=== PATIENT | female | born 1935 | race Caucasian/White ===

== ENCOUNTER 2021-05-16 15:00 | Outpatient (RCR) | payer MEDICARE, SELFPAY ==
[2021-02-15 15:46] VITALS: BP 124/60; PULSE 92; TEMP 35.8; O2SAT 94
[2021-02-15 16:11] VITALS: PULSE 81
== END 2021-05-16 16:30 | disposition home or self-care (01) ==
LOC: ANHCPREHAB 15:00
PROVIDERS: Visit Provider Hospitalist
DX: Z95.5 Presence of coronary angioplasty implant and graft (principal)
CPT/HCPCS: 93798

== ENCOUNTER 2022-11-06 14:24 | Emergency (ER) | payer MEDICARE, SELFPAY ==
--- NOTE | 2022-11-06 14:26 | ED.EYEPROB ---
HPI - Eye Problem General Chief complaint: Eye Problems Stated complaint: Eyes Irritation Time Seen by Provider: 11/06/22 14:48 Source: patient, RN notes reviewed and old records reviewed Mode of arrival: ambulatory Limitations: no limitations History of Present Illness HPI Narrative: 87-year-old female presents to the [facility] with red eyes, drainage as well as being crusted over this morning. Had taking care of her grand babies yesterday. Describes him as being very itchy. Denies any blurry vision or change in vision. Symptoms started this morning Related Data Home Medications Medication Instructions Recorded Confirmed acetaminophen 325 mg tablet 325 mg PO ONCE PRN Mild Pain 02/15/21 02/15/21 (Tylenol) (Scale Score 1-4) alprazolam 0.25 mg tablet (Xanax) 0.25 mg PO PRN 02/15/21 02/15/21 ascorbic acid (vitamin C) 100 mg 100 mg PO DAILY 02/15/21 02/15/21 tablet aspirin 81 mg tablet 81 mg PO DAILY 02/15/21 02/15/21 atorvastatin 80 mg tablet 80 mg PO HS 02/15/21 02/15/21 clopidogrel 75 mg tablet 75 mg PO DAILY 02/15/21 02/15/21 ergocalciferol (vitamin D2) 50 mcg 50 mcg PO DAILY 02/15/21 02/15/21 (2,000 unit) capsule hydrochlorothiazide 12.5 mg tablet 12.5 mg PO DAILY 02/15/21 02/15/21 levothyroxine 100 mcg tablet 100 mcg PO DAILY 02/15/21 02/15/21 metoprolol succinate 25 mg 25 mg PO DAILY 02/15/21 02/15/21 tablet,extended release 24 hr olmesartan 20 mg tablet 20 mg PO DAILY 02/15/21 02/15/21 vitamin E 200 unit capsule 100 unit PO DAILY 02/15/21 02/15/21 vitamins A,C,X-hpty-neaier 2,148 2 tablet PO BID 02/15/21 02/15/21 mcg-113 mg-45 mg-17.4 mg tablet (PreserVision AREDS) Natural Co-Q10 11/06/22 PreserVision AREDS 11/06/22 evolocumab 140 mg/mL subcutaneous mg subcut 11/06/22 pen injector (Thiago Mejia) nitroglycerin 11/06/22 Allergies Allergy/AdvReac Type Severity Reaction Status Date / Time meperidine Allergy Mild Unknown Unverified 11/06/22 14:32 Penicillins Allergy Mild Unknown Unverified 11/06/22 14:32 Review of Systems Review of Systems: All systems reviewed & are unremarkable except as noted in HPI and below Constitutional: Constitutional: Reports no additional constitutional complaints Eyes: Eyes: Reports as per HPI, Denies change in vision, Reports eye discharge, Reports irritation, Reports itchy eyes and Denies photophobia ENT: Reports system reviewed and no additional complaints, except as documented Cardiovascular: Cardiovascular: Reports no additional cardiovascular complaints, Denies chest pain and Denies dyspnea Respiratory: Respiratory: Reports no additional respiratory complaints, Denies chest congestion, Denies cough and Denies dyspnea Gastrointestinal: Gastrointestinal: Reports no additional gastrointestinal complaints, Denies abdominal pain, Denies nausea and Denies vomiting Musculoskeletal: Musculoskeletal: Reports no additional musculoskeletal complaints Integumentary/Breasts: Skin/Breast: Reports system reviewed and no additional complaints, except as docu Neurologic: Reports system reviewed and no additional complaints, except as documented Psychiatric: Psychiatric: Reports no additional psychiatric complaints Allergic/Immunologic: Allergic/Immunologic: Reports no additional allergic/immunologic complaints [facility] Past Medical History Medical History (Updated 11/07/22 @ 08:03 by Marissa Cole APRN) Anxiety High cholesterol History of high blood pressure Hypothyroid Vitamin D deficiency Family History Family History (Updated 02/15/21 @ 15:55 by Marlin Mchugh RN) Grandparent Acute myocardial infarction Sibling Diabetes mellitus Grandparent Cerebrovascular accident Father Colon cancer Sibling Heart disease Social History Social History Smoking status: Never smoker Second hand tobacco smoke exposure: No Gender identity (if verbalized by the patient): Female Comments At th
[2022-11-06 14:33] VITALS: BP 154/72; PULSE 85; RESP 16; TEMP 36.8; O2SAT 96
== END 2022-11-06 14:58 | disposition home or self-care (01) ==
PROVIDERS: Emergency Provider Nurse Practitioner
DX: H10.9 Unspecified conjunctivitis (principal); E03.9 Hypothyroidism, unspecified
CPT/HCPCS: 99213; G0463

== ENCOUNTER 2023-03-06 13:20 | Emergency (ER) | payer MEDICARE, SELFPAY ==
--- NOTE | ~2023-03-06 | XR_ITS ---
EXAMINATION: XR chest 2V 03/06/2023 13:58 INDICATION: Cough and shortness of breath PROCEDURE: 2 view chest COMPARISON: No prior studies for comparison. FINDINGS: The lungs are clear. The cardiomediastinal silhouette is within normal limits. There are no pleural effusions. There is no pneumothorax suspected. There is atherosclerosis of the aorta. Mo derate thoracic spondylosis with accentuated kyphosis. IMPRESSION: 1: NO ACUTE CARDIOPULMONARY DISEASE. Reviewed, dictated and finalized at location L.
[2023-03-06 13:25] VITALS: BP 167/70; PULSE 82; RESP 16; TEMP 36.6; O2SAT 97
--- NOTE | 2023-03-06 13:29 | ED.URI ---
HPI - URI/Sore Throat General Chief Complaint: Upper Respiratory Infection Stated Complaint: Sinus Time Seen by Provider: 03/06/23 13:29 Source: patient, RN notes reviewed and old records reviewed Mode of arrival: ambulatory Limitations: no limitations History of Present Illness HPI Narrative: 88-year-old female presents to the [facility] with ?I am ill. ? Patient not a very good historian when it comes to signs and symptoms. Patient reports that she was cleaning on Sunday, 4 days ago became suddenly short of breath. States that she used her inhaler. Reports that she was extremely ill on Sunday and Sunday ?could not get out of bed. On Sunday started feeling better but could not leave the house. States today she is feeling better was able to get out of the house. Still feels very tired and ill. Has had cough Denies chest pain or abdominal pain. Denies fevers. Patient states ?this is all my allergies. ? Use to get a Symbicort, azithromycin and albuterol from her doctor Related Data Home Medications Medication Instructions Recorded Confirmed acetaminophen 325 mg tablet 325 mg PO ONCE PRN Mild Pain 02/15/21 03/06/23 (Tylenol) (Scale Score 1-4) ascorbic acid (vitamin C) 100 mg 100 mg PO DAILY 02/15/21 03/06/23 tablet aspirin 81 mg tablet 81 mg PO DAILY 02/15/21 03/06/23 ergocalciferol (vitamin D2) 50 mcg 50 mcg PO DAILY 02/15/21 03/06/23 (2,000 unit) capsule hydrochlorothiazide 12.5 mg tablet 12.5 mg PO DAILY 02/15/21 03/06/23 levothyroxine 100 mcg tablet 100 mcg PO DAILY 02/15/21 03/06/23 metoprolol succinate 25 mg 25 mg PO DAILY 02/15/21 03/06/23 tablet,extended release 24 hr olmesartan 20 mg tablet 20 mg PO DAILY 02/15/21 03/06/23 vitamin E 200 unit capsule 100 unit PO DAILY 02/15/21 03/06/23 vitamins A,C,D-cbmx-tlmqim 2,148 2 tablet PO BID 02/15/21 03/06/23 mcg-113 mg-45 mg-17.4 mg tablet (PreserVision AREDS) Natural Co-Q10 100 mg DIRECTED 11/06/22 03/06/23 PreserVision AREDS 2 cap DIRECTED 11/06/22 03/06/23 nitroglycerin 0.4 mg DIRECTED 11/06/22 03/06/23 Allergies Allergy/AdvReac Type Severity Reaction Status Date / Time diazepam Allergy Mild Unknown Verified 03/06/23 13:50 meperidine Allergy Mild Unknown Unverified 11/06/22 14:32 Penicillins Allergy Mild Unknown Unverified 11/06/22 14:32 atorvastatin AdvReac Intermediate Muscle Pain Verified 03/06/23 13:49 prednisone AdvReac Mild Other Verified 03/06/23 13:49 Review of Systems Review of Systems: All systems reviewed & are unremarkable except as noted in HPI and below Constitutional: Constitutional: Reports as per HPI, Reports body ache(s) and Reports fatigue Eyes: Eyes: Reports no additional eye complaints ENT: Reports system reviewed and no additional complaints, except as documented Cardiovascular: Cardiovascular: Reports no additional cardiovascular complaints, Denies chest pain and Denies dyspnea Respiratory: Respiratory: Reports as per HPI, Denies chest congestion, Reports cough and Denies dyspnea Gastrointestinal: Gastrointestinal: Reports no additional gastrointestinal complaints, Denies abdominal pain, Denies nausea and Denies vomiting Musculoskeletal: Musculoskeletal: Reports no additional musculoskeletal complaints Integumentary/Breasts: Skin/Breast: Reports system reviewed and no additional complaints, except as docu Neurologic: Reports system reviewed and no additional complaints, except as documented Psychiatric: Psychiatric: Reports no additional psychiatric complaints Allergic/Immunologic: Allergic/Immunologic: Reports no additional allergic/immunologic complaints [facility] Past Medical History Medical History Anxiety High cholesterol History of high blood pressure Hypothyroid Vitamin D deficiency Family History Family History Grandparent Acute myocardial infarction Sibling Diabetes mellitus Grandparent
--- NOTE | 2023-03-06 13:58 | ECG_ITS ---
Measurements Intervals [place] Rate: 78 P: 28 VA: 170 QRS: -12 QRSD: 102 T: 19 QT: 366 QTc: 417 Interpretive Statements SINUS RHYTHM DELAYED PRECORDIAL R/S TRANSITION BORDERLINE ECG NO PREVIOUS ECG AVAILABLE FOR COMPARISON Electronically Signed On 03-06-2023 18:24:48 CDT by Greg Workman D.O.
== END 2023-03-06 14:22 | disposition home or self-care (01) ==
PROVIDERS: Emergency Provider Nurse Practitioner; PCP Family Medicine
DX: J40 Bronchitis, not specified as acute or chronic (principal); E78.00 Pure hypercholesterolemia, unspecified; E03.9 Hypothyroidism, unspecified; I10 Essential (primary) hypertension; E55.9 Vitamin D deficiency, unspecified; Z79.82 Long term (current) use of aspirin; I25.10 Atherosclerotic heart disease of native coronary artery without angina pectoris; Z95.5 Presence of coronary angioplasty implant and graft; I25.2 Old myocardial infarction; M19.90 Unspecified osteoarthritis, unspecified site; Z96.653 Presence of artificial knee joint, bilateral; H35.30 Unspecified macular degeneration
CPT/HCPCS: 71046; 93005; 99213; G0463

== ENCOUNTER 2024-03-20 16:06 | Emergency (ER) | payer MEDICARE, SELFPAY ==
--- NOTE | 2024-03-20 16:14 | ED.FEMALEGU ---
HPI - Female Genitourinary General Chief complaint: Urogenital-Female Stated complaint: urinary issue Time Seen by Provider: 03/20/24 16:14 Source: patient Mode of arrival: ambulatory Limitations: no limitations History of Present Illness HPI Narrative: Patient is a 89-year-old female that presents with frequency, urgency and burning with urination since Sunday. Denies history of UTI. Denies any abdominal pain or low back pain. Denies any fever, chills, nausea, vomiting, diarrhea. MD elicited complaint: dysuria Related Data Home Medications Medication Instructions Recorded Confirmed acetaminophen 325 mg tablet 325 mg PO ONCE PRN Mild Pain 02/15/21 03/20/24 (Tylenol) (Scale Score 1-4) ascorbic acid (vitamin C) 100 mg 100 mg PO DAILY 02/15/21 03/20/24 tablet aspirin 81 mg tablet 81 mg PO DAILY 02/15/21 03/20/24 ergocalciferol (vitamin D2) 50 mcg 50 mcg PO DAILY 02/15/21 03/20/24 (2,000 unit) capsule hydrochlorothiazide 12.5 mg tablet 12.5 mg PO DAILY 02/15/21 03/20/24 levothyroxine 100 mcg tablet 100 mcg PO DAILY 02/15/21 03/20/24 metoprolol succinate 25 mg 25 mg PO DAILY 02/15/21 03/20/24 tablet,extended release 24 hr olmesartan 20 mg tablet 20 mg PO DAILY 02/15/21 03/20/24 vitamin E 200 unit capsule 100 unit PO DAILY 02/15/21 03/20/24 vitamins A,C,O-iptn-ougkpi 2,148 2 tablet PO BID 02/15/21 03/20/24 mcg-113 mg-45 mg-17.4 mg tablet (PreserVision AREDS) Natural Co-Q10 100 mg DIRECTED 11/06/22 03/20/24 PreserVision AREDS 2 cap DIRECTED 11/06/22 03/20/24 nitroglycerin 0.4 mg DIRECTED 11/06/22 03/20/24 Allergies Allergy/AdvReac Type Severity Reaction Status Date / Time diazepam Allergy Mild Unknown Verified 03/06/23 13:50 meperidine Allergy Mild Unknown Unverified 11/06/22 14:32 Penicillins Allergy Mild Unknown Unverified 11/06/22 14:32 atorvastatin AdvReac Intermediate Muscle Pain Verified 03/06/23 13:49 prednisone AdvReac Mild Other Verified 03/06/23 13:49 Review of Systems Review of Systems: All systems reviewed & are unremarkable except as noted in HPI and below Constitutional: Constitutional: Denies chills, Denies fever(s), Denies headache(s), Denies malaise and Denies weakness Eyes: Eyes: Denies change in vision, Denies eye discharge and Denies irritation ENT: Denies otalgia, Denies headache(s), Denies nasal congestion, Denies nasal discharge, Denies sinus pain and Denies sore throat Cardiovascular: Cardiovascular: Denies chest pain, Denies edema, Denies palpitations and Denies dyspnea Respiratory: Respiratory: Denies cough and Denies dyspnea Gastrointestinal: Gastrointestinal: Denies abdominal pain, Denies diarrhea, Denies nausea and Denies vomiting Genitourinary: Genitourinary: Denies hematuria, Reports nocturia, Reports dysuria, Denies flank pain and Reports urinary urgency Musculoskeletal: Musculoskeletal: Denies back pain and Denies numbness Integumentary/Breasts: Skin/Breast: Denies pruritus and Denies rash Neurologic: Denies headache(s), Denies numbness and Denies weakness Psychiatric: Psychiatric: Reports no additional psychiatric complaints Endocrine: Endocrine: Denies palpitations PMFSH Past Medical History Medical History Anxiety High cholesterol History of high blood pressure Hypothyroid Vitamin D deficiency Family History Family History Grandparent Acute myocardial infarction Sibling Diabetes mellitus Grandparent Cerebrovascular accident Father Colon cancer Sibling Heart disease Social History Social History Smoking status: Never smoker Second hand tobacco smoke exposure: No Gender identity (if verbalized by the patient): Female Comments At time of signature, agree with nursing past medical, surgical, social and family history. There is no relevant family history pertinent to
[2024-03-20 16:24] VITALS: BP 172/91; PULSE 68; RESP 12; TEMP 36.4; O2SAT 96
== END 2024-03-20 17:04 | disposition home or self-care (01) ==
PROVIDERS: Emergency Provider Nurse Practitioner Family; PCP Family Medicine
DX: N30.00 Acute cystitis without hematuria (principal); B96.20 Unspecified Escherichia coli [E. coli] as the cause of diseases classified elsewhere; E78.00 Pure hypercholesterolemia, unspecified; I10 Essential (primary) hypertension; E03.9 Hypothyroidism, unspecified; E55.9 Vitamin D deficiency, unspecified; Z79.82 Long term (current) use of aspirin
CPT/HCPCS: 81003; 87077; 87086; 87088; 87186; 99213; G0463

== ENCOUNTER 2024-07-16 10:00 | Outpatient (RCR) | payer MEDICARE, SELFPAY ==
[2024-04-08 12:06] VITALS: PULSE 80
== END 2024-07-31 12:45 | disposition home or self-care (01) ==
LOC: ANHCPREHAB 10:00
PROVIDERS: PCP Family Medicine; Visit Provider Hospitalist
DX: Z95.5 Presence of coronary angioplasty implant and graft (principal)
CPT/HCPCS: 93798